=== PATIENT | female | born 2000 | race Hispanic/Latino ===

== ENCOUNTER 2024-09-16 04:59 | Emergency (ER) | payer MEDICAID ==
[~2024-09-16] VITALS: Ht 167.6 cm; Wt 60.8 kg
[2024-09-16] MEDS: ondanSETRON 4MG INJ IVP ONE (05:03)
[2024-09-16] MEDS: morPHINE 4 MG SYG IVP ONE (05:03)
[2024-09-16 05:04] VITALS: BP 126/93; PULSE 96; RESP 22; TEMP 97.3
[2024-09-16 05:24] LABS: BASOPHILS # (AUTO) 0.07 K/uL (0.00-0.20); BASOPHILS % (AUTO) 0.4 % (0.0-5.0); EOSINOPHILS # (AUTO) 0.16 K/uL (0.00-0.70); HEMATOCRIT 45.8 % (36-48); IMMATURE GRANULOCYTE ABSOLUTE 0.11 K/uL (0-1); LYMPHOCYTES # (AUTO) 3.4 K/uL (1.0-4.8); LYMPHOCYTES % (AUTO) 20.5 % (21.0-51.0); MEAN CORPUSCULAR HEMOGLOBIN 29.5 pg (27.0-33.0); MEAN CORPUSCULAR HGB CONC 32.3 g/dL (32.0-36.0); MEAN CORPUSCULAR VOLUME 91.4 fL (79-99); MONOCYTES # (AUTO) 0.8 K/uL (0.1-1.0); MONOCYTES % (AUTO) 4.6 % (3.0-13.0); NEUTROPHILS # (AUTO) 12.2 K/uL (1.8-7.7); NEUTROPHILS % (AUTO) 72.8 % (40.0-77.0); PLATELET COUNT (AUTO) 329 K/uL (130-400); RED BLOOD CELL COUNT(AUTO) 5.01 MIL/uL (4.00-5.50); RED CELL DISTRIBUTION WIDTH 14.2 % (11.0-15.5); WHITE BLOOD COUNT (AUTO) 16.7 K/uL (4.8-10.8)
[2024-09-16] MEDS ORDERED: IOHEXOL 350 MG/ML 100ML INFUS..BTL IV ONE (05:27)
[2024-09-16] MEDS ORDERED: IOHEXOL-350 50ML VIAL IV ONE (05:37)
[2024-09-16 05:46] LABS: POTASSIUM 3.7 mmol/L (3.5-5.1)
[2024-09-16 05:51] LABS: ALBUMIN 3.9 g/dL (3.5-5.0); BILIRUBIN,TOTAL 1.1 mg/dL (0.2-1.0); TOTAL PROTEIN, SERUM 7.7 g/dL (6.0-8.3)
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
[2024-09-16 07:52] LABS: APPEARANCE,URINE CLEAR (CLEAR); BILIRUBIN,URINE NEGATIVE (NEGATIVE); COLOR,URINE COLORLESS (YELLOW); GLUCOSE, URINE (UA) NEGATIVE (NEGATIVE); KETONES,URINE NEGATIVE (NEGATIVE); LEUKOCYTE ESTERASE ,URINE NEGATIVE Leu/uL (NEGATIVE); NITRATE,URINE NEGATIVE (NEGATIVE); OCCULT BLOOD,URINE LARGE (NEGATIVE); PH,URINE 5.5 (5.0-8.0); PROTEIN,URINE NEGATIVE (NEGATIVE); UROBILINOGEN,URINE 0.2 mg/dL (0.2-1.0)
[2024-09-16 07:53] LABS: ADD UA MICROSCOPIC YES
[2024-09-16 07:55] LABS: SQUAMOUS EPITHELIAL CELL,UR RARE /HPF (0-2); WBC,URINE 0-1 /HPF (0-1)
--- NOTE | 2024-09-16 07:57 | NUR ---
FAMILY NOTE: THE PTS SPOUSE VANESSA MELARA CALLED INQUIRING ABOUT "CARLA MELARA" HIS "". I PLACED HIM ON HOLD AND INFORMED THE PT THAT HE WAS INQUIRING. SHE STATED SHE DID NOT WANT HIM HERE BUT NEEDED AND WANTED HER PHONE THAT HE HAS. SHE ASKED IF HE COULD DROP IT OFF OR COME IN TO JUST DROP IT OFF BUT THAT SHE DID NOT WANT HIM BACK HERE. I ASKED IF SHED LIKE SECURITY TO ASK HIM FOR IT WHEN AND IF SHE SHOWS UP TO THE HOSPITAL AND SHE SAID YES. TO NOT HAVE HIM COME BACK BUT THAT SHE ONLY WANTED WHAT IS HERS. THE NUMBER/NAME THAT SHOWED UP ON THE PHONE HE WAS CALLING FROM SAID "CARLA MELARA" ON THE CALLER ID.
[2024-09-16 08:00] LABS: AMPHET/METH SCREEN,URINE NEGATIVE (NEGATIVE); BARBITURATE SCREEN, URINE NEGATIVE (NEGATIVE); BENZODIAZEPINES SCREEN,URINE NEGATIVE (NEGATIVE); CANNABINOID SCREEN,URINE POSITIVE (NEGATIVE); COCAINE SCREEN,URINE NEGATIVE (NEGATIVE); OPIATE SCREEN,URINE NEGATIVE (NEGATIVE); PHENCYCLIDINE SCREEN,URINE NEGATIVE (NEGATIVE)
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
--- NOTE | 2024-09-16 09:20 | HMCIMG ---
Exam Type: KNEE 3VWS LT Clinical Information: trauma Comparison: None Findings: The bone examination is unremarkable. No fractures or dislocations are seen. No radiopaque foreign bodies are noted. Soft tissues are preserved. IMPRESSION: Normal examination.
--- NOTE | 2024-09-16 09:23 | HMCIMG ---
Exam Type: KNEE 3VWS RT Clinical Information: trauma Comparison: None Findings: The bone examination is unremarkable. No fractures or dislocations are seen. No radiopaque foreign bodies are noted. Soft tissues are preserved. IMPRESSION: Normal examination.
--- NOTE | 2024-09-16 09:23 | HMCIMG ---
Exam Type: FOOT COMP 3+VWS LT Clinical Information: trauma Comparison: None Findings: The bone examination is unremarkable. No fractures or dislocations are seen. No radiopaque foreign bodies are noted. Soft tissues are preserved. IMPRESSION: Normal examination.
--- NOTE | 2024-09-16 09:23 | HMCIMG ---
Exam Type: FOOT COMP 3+VWS RT Clinical Information: trauma Comparison: None Findings: The bone examination is unremarkable. No fractures or dislocations are seen. No radiopaque foreign bodies are noted. Soft tissues are preserved. IMPRESSION: Normal examination.
--- NOTE | 2024-09-16 09:23 | HMCIMG ---
Exam Type: ANKLE COMP 3+VWS KATE Clinical Information: trauma Comparison: None Findings: The bone examination is unremarkable. No fractures or dislocations are seen. No radiopaque foreign bodies are noted. Soft tissues are preserved. IMPRESSION: Normal examination.
--- NOTE | 2024-09-16 09:24 | HMCIMG ---
Exam Type: HUMERUS 2+VWS LT Clinical Information: trauma Comparison: None Findings: The bone examination is unremarkable. No fractures or dislocations are seen. No radiopaque foreign bodies are noted. Soft tissues are preserved. IMPRESSION: Normal examination.
--- NOTE | 2024-09-16 09:24 | HMCIMG ---
Exam Type: WRIST COMP 3+VWS RT Clinical Information: trauma Comparison: None Findings: The bone examination is unremarkable. No fractures or dislocations are seen. No radiopaque foreign bodies are noted. Soft tissues are preserved. IMPRESSION: Normal examination.
--- NOTE | 2024-09-16 09:24 | HMCIMG ---
Exam Type: WRIST COMP 3+VWS LT Clinical Information: trauma Comparison: None Findings: The bone examination is unremarkable. No fractures or dislocations are seen. No radiopaque foreign bodies are noted. Soft tissues are preserved. IMPRESSION: Normal examination.
--- NOTE | 2024-09-16 09:25 | HMCIMG ---
Exam Type: FEMUR 2VW RIGHT Clinical Information: trauma Comparison: None Findings: The bone examination is unremarkable. No fractures or dislocations are seen. No radiopaque foreign bodies are noted. Soft tissues are preserved. IMPRESSION: Normal examination.
--- NOTE | 2024-09-16 09:25 | HMCIMG ---
Exam Type: FEMUR 2 VW LEFT Clinical Information: trauma Comparison: None Findings: The bone examination is unremarkable. No fractures or dislocations are seen. No radiopaque foreign bodies are noted. Soft tissues are preserved. IMPRESSION: Normal examination.
--- NOTE | 2024-09-16 09:25 | HMCIMG ---
Exam Type: HUMERUS 2+VWS RT Clinical Information: trauma Comparison: None Findings: The bone examination is unremarkable. No fractures or dislocations are seen. No radiopaque foreign bodies are noted. Soft tissues are preserved. IMPRESSION: Normal examination.
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
--- NOTE | 2024-09-16 09:55 | NUR ---
PT AWAKE, ALERT, OX4, INSISTING THAT SHE NEEDS TO LEAVE AND AND WILLING TO SIGN AMA, INFORMED MD AND CHARGE NURSE, SPOKE TO PT ABOUT RISK AND PT VERBALIZED FULL UNDERSTANDING.
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
== END 2024-09-16 10:55 | disposition left against medical advice (07) ==
LOC: EDH 05:02
DX: S30.811A Abrasion of abdominal wall, initial encounter (principal); Z88.0 Allergy status to penicillin; Z95.810 Presence of automatic (implantable) cardiac defibrillator; V87.8XXA Person injured in other specified noncollision transport accidents involving motor vehicle (traffic), initial encounter; Y93.89 Activity, other specified; Y92.89 Other specified places as the place of occurrence of the external cause; Y99.8 Other external cause status
CPT/HCPCS: 99285; 70450; 96374; 71045; 96375; 80053; 80305; 84703; 85025; 86850; 86900; 86901; 36415; 73610; 73630 ×2; 73060 ×2; 73552 ×2; 73562 ×2; 73110 ×2; 70487; 71260; 72129; 72126; 72132; 74177; 81001; J2405; J2270; Q9967 ×2